=== PATIENT | female | born 1980 | race Hispanic/Latino ===

== ENCOUNTER 2019-06-07 18:42 | Emergency (ER) | payer OTHER, SELFPAY ==
--- NOTE | 2019-06-07 19:37 | RAD ---
RIGHT KNEE FOUR VIEWS: Indication: History of dancing and twisting right knee with right knee pain. Comparison: None. FINDINGS: There is soft tissue swelling overlying the right knee. There is mild joint capsular distention. No d efinite acute fracture or subluxation is evident. IMPRESSION: Soft tissue swelling and mild joint capsular distention. No acute osseous abnormality. POS: [facility]
== END 2019-06-07 19:52 | disposition home or self-care (01) ==
LOC: ERS 18:42
DX: M25.561 Pain in right knee (principal); W18.30XA Fall on same level, unspecified, initial encounter

== ENCOUNTER 2021-12-10 01:40 | Emergency (ER) | payer SELFPAY ==
[2021-12-10] MEDS ORDERED: Ketorolac Tromethamine 30 MG/ML VIAL ONE (03:32)
[2021-12-10] MEDS ORDERED: Dexamethasone 10 MG/ML VIAL ONE (03:32)
[2021-12-10] MEDS ORDERED: Orphenadrine Citrate 60 MG/2 ML VIAL ONE (03:44)
== END 2021-12-10 04:47 | disposition home or self-care (01) ==
LOC: ERS 01:40
DX: M54.41 Lumbago with sciatica, right side (principal)
CPT/HCPCS: 96372; 99283; J1100; J1885; J2360

== ENCOUNTER 2022-02-09 01:52 | Emergency (ER) | payer SELFPAY ==
[2022-02-09] MEDS ORDERED: Ketorolac Tromethamine 30 MG/ML VIAL ONE (02:39)
[2022-02-09] MEDS ORDERED: predniSONE 20 MG TAB ONE (02:39)
== END 2022-02-09 03:03 | disposition home or self-care (01) ==
LOC: ERS 01:52
DX: M54.12 Radiculopathy, cervical region (principal); R20.2 Paresthesia of skin
CPT/HCPCS: 93005; 96372; J1885; J7512

== ENCOUNTER 2022-02-28 09:45 | Outpatient (CLI) | payer OTHER, SELFPAY | END 2022-02-28 09:46 | disposition home or self-care (01) | LOC: RAD 09:45 | PROVIDERS: ATTEND Internal Medicine | DX: M54.2 Cervicalgia (principal); G89.29 Other chronic pain; V89.2XXA Person injured in unspecified motor-vehicle accident, traffic, initial encounter | CPT/HCPCS: 72040 ==

== ENCOUNTER 2022-07-29 12:27 | Outpatient (CLI) | payer BC | END 2022-07-29 12:28 | disposition home or self-care (01) | LOC: RAD 12:27 | PROVIDERS: ATTEND Nurse Practitioner Family | DX: S59.911D Unspecified injury of right forearm, subsequent encounter (principal); S69.91XD Unspecified injury of right wrist, hand and finger(s), subsequent encounter; S62.111D Displaced fracture of triquetrum [cuneiform] bone, right wrist, subsequent encounter for fracture with routine healing ==